=== PATIENT | female | born 1950 | race Caucasian/White ===

== ENCOUNTER 2025-03-03 19:59 | Emergency (ER) | payer OTHER ==
[~2025-03-03] VITALS: Ht 162.6 cm; Wt 91.0 kg
--- NOTE | 2025-03-03 20:13 | ED.PDOC ---
History of Present Illness HPI Comments 75-year-old female who is brought in by ambulance from home for left hip pain and abrasion wound to left forearm status post mechanical fall and injury. Per EMS report, patient has a history of AFib but is not on any blood thinners. She is reported to have tripped at home and fell onto her left side and was unable to assist herself up, due to pain. Vitals were noted to have been stable and within normal limits. Patient denies having any loss of consciousness, additional injuries, active bleeding, numbness, tingling, dizziness, lightheadedness, or further associated symptoms. Chief Complaint: Fall Injury Time Seen by MD: 20:00 Reviewed Notes: Nurses Notes, Bottom Sprayer Notes, Medications, Allergies Allergies: Coded Allergies: Codeine (Verified Allergy, Intermediate, SHORTNESS OF BREATH, 03/03/25) Information Source: Patient, Emergency Med Personnel Mode of Arrival: EMS Severity: Moderate Timing: Hours Duration: Since onset Prehospital treatment: 12 Lead EKG, Accucheck, Wastewater Engineer Past Medical History PAST MEDICAL HISTORY: AFIB Surgical History: Denies all surgeries AXMINSTER WEAVER History: Denies all AXMINSTER WEAVER Hx Family History Family History: Unknown Social History Smoker: Non-Smoker Alcohol: Denies ETOH Use Drugs: Denies Drug Use Lives In: Home All Other Systems: Reviewed and Negative (Comprehensive systems review obtained and negative except for what is stated in the HPI.) Physical Exam General Appearance: No Apparent Distress, Normal HEENT: Normal ENT Inspection, Pharynx Normal, TMs Normal Neck: Full Range of Motion, Non-Tender, Normal, Normal Inspection Respiratory: Chest Non-Tender, Lungs Clear, No Accessory Muscle Use, No Respiratory Distress, Normal Breath Sounds Cardiovascular: No Edema, No JVD, No Murmur, No Gallop, Normal Peripheral Pulses, Regular Rate/Rhythm Breast Exam: Deferred Gastrointestinal: No Organomegaly, Non Tender, No Pulsatile Mass, Normal Bowel Sounds, Soft Genitalia: Deferred Pelvic: Deferred Rectal: Deferred Extremities: No calf tenderness, Normal capillary refill, Normal inspection, Normal range of motion, Non-tender, No pedal edema Musculoskeletal : Location: Left Extremity Location: Hip Apperance: Normal, Tenderness Neurologic: Alert, manager of software development II-XII nml as Tested, No Motor Deficits, Normal Affect, Normal Mood, No Sensory Deficits Cerebellar Function: Normal Reflexes: Normal Skin: Dry, Normal Color, Warm, Wounds (Abrasion to left forearm) Lymphatic: No Adenopathy Was a procedure done? Was a procedure done?: No Differential Dx Considerations may include: Fracture, contusion, abrasions, bruising, sprain, dislocation, among others X-Ray, Labs, Meds, VS Vital Signs Date Time Temp Pulse Resp B/P (MAP) Pulse Ox O2 Delivery O2 Flow Rate FiO2 03/03/25 21:17 73 18 95 Room Air* 0 21 03/03/25 21:16 98.2 73 18 135/56 (82) 95 98.2 03/03/25 20:05 97.8 88 18 149/78 (101) 94 97.8 Current Medications Medications (Trade) Dose Ordered Sig/Nereida Route Start Time Stop Time Status Last Admin Acetaminophen (Tylenol Tablet) 1,000 mg ONCE ONCE PO 03/03/25 21:15 03/03/25 21:16 DC 03/03/25 21:21 [place] [id number] Ph: [phone] DIAGNOSTIC IMAGING Diagnostic Imaging Report : [id number] Signed PATIENT: CLIFF JHAVERI ACCT: [id number] UNIT: [id number] : 1950 LOC: ER ROOM / BED: / AGE / SEX: 75 / F ADM STATUS: REG ER SERVICE 25 ORDERING PHYSICIAN: ARIAS AYALA MD PROCEDURE(s): LHIP - L HIP COMPLETE XRAY REASON: fall ORDER NUMBER(s): [id number], ACCESSION NUMBER(s): [id number] CLINICAL INDICATION: fall TECHNIQUE: 3 radiographic views of the proximal left femur were obtained. Comparison: None FINDINGS/IMPRESSION: There is no evidence of acute fracture or dislocation. The visualized joint space is well maintained. The alignment is anatomical. There is no radiopaque foreign body. ATED BY: JUAN CASTILLO Jr., DO DICTATED DATE/TIME: 03/03/252115 SIGNED BY: JUAN CASTILLO Jr., SIGNED DATE/TIME: 03/03/252115 CC: [place] [id number] Ph: [phone] DIAGNOSTIC IMAGING Diagnostic Imaging Report : [id number] Signed PATIENT: CLIFF JHAVERI ACCT: [id number] UNIT: [id number] : 1950 LOC: ER ROOM / BED: / AGE / SEX: 75 / F ADM STATUS: REG ER SERVICE 25 ORDERING PHYSICIAN: ARIAS AYALA MD PROCEDURE(s): LFOR - L FOREARM XRAY REASON: fall ORDER NUMBER(s): [id number], ACCESSION NUMBER(s): [id number] CLINICAL INDICATION: fall TECHNIQUE: 2 radiographic views of the left forearm were obtained. Comparison: None FINDINGS/IMPRESSION: Small area of periosteal reaction distal 3rd of the left ulna suggesting fracture in that area. The visualized joint space is well maintained. The alignment is anatomical. There is no radiopaque foreign body. ATED BY: JUAN CASTILLO Jr., DO DICTATED DATE/TIME: 03/03/252117 SIGNED BY: JUAN CASTILLO Jr., SIGNED DATE/TIME: 03/03/252117 CC: Time of 1ST Reevaluation: 20:30 Reevaluation 1ST: Unchanged Patient Education/Counseling: Diagnosis, Treatment Family Education/Counseling: No Family Present Additional Information Previous visits reviewed: N/A The following tests were ordered, and results were reviewed by me: Left hip x- ray Additional Information was gathered from interviewing the following independent historians: EMS I reviewed and agreed with the following test results read by other providers: Left hip x-ray I discussed treatment and results with medical personnel and: patient SEPSIS Sepsis Screen Physician Orders L Hip Complete Xray (03/03/25 20:26) L Forearm Xray (03/03/25 20:26) Splints (03/03/25 ) Vital Signs Date Time Temp Pulse Resp B/P (MAP) Pulse Ox O2 Delivery O2 Flow Rate FiO2 03/03/25 21:17 73 18 95 Room Air* 0 21 03/03/25 21:16 98.2 73 18 135/56 (82) 95 98.2 03/03/25 20:05 97.8 88 18 149/78 (101) 94 97.8 Medications Medications Dose Ordered Sig/Nereida Route Start Time Stop Time Status Last Admin Dose Admin Acetaminophen 1,000 mg ONCE ONCE PO 03/03/25 21:15 03/03/25 21:16 DC 03/03/25 21:21 Departure 1 Departure Time of Disposition: 23:13 (Patient has an ulnar fracture. We will splint in discharge patient home with outpatient follow up) Impression: Primary Impression: Left ulnar fracture Qualified Codes: S52.692A - Other fracture of lower end of left ulna, initial encounter for closed fracture Disposition: HOME / SELF CARE / HOMELESS Condition: Stable Referrals: JORDAN SORENSEN MD Additional Instructions: You have a distal ulnar fracture. You were placed in a splint. You referred to orthopedics. Please call for an appointment. For pain you can take the followinam: Ibuprofen 400mg with food Noon: Acetaminophen 1000mg 4pm: Ibuprofen 400mg with food 8pm: Acetaminophen 1000mg You should follow up with your regular doctor within one week to ensure you are doing better. If your symptoms worsen or you have any other concerns then please return to the ER. Discharged With: Self Critical Care Note Critical Care Time?: No Stability Stability form required: No Heart Score Heart Score: Heart Score Response (Comments) Value History N/A 0 EKG N/A 0 Age N/A 0 Risk Factors N/A 0 Troponin N/A 0 Total 0 I personally scribed for ARIAS AYALA MD ([email or web address]) on 03/03/25 at 20:13. Electronically submitted by Mundo Flaherty ([email or web address]). I personally scribed for ARIAS AYALA MD ([email or web address]) on 03/03/25 at 21:35. Electronically submitted by Mundo Flaherty ([email or web address]). ARIAS AYALA MD Mar 03, 2025 20:13
[2025-03-03] MEDS ORDERED: HYDROcodone-ACET 10/325MG TAB PO ONE (20:30)
[2025-03-03 21:16] VITALS: BP 135/56; TEMP 98.2
[2025-03-03 21:17] VITALS: PULSE 73; RESP 18; O2SAT 95
--- NOTE | 2025-03-03 21:19 | DVH ---
CLINICAL INDICATION: fall TECHNIQUE: 3 radiographic views of the proximal left femur were obtained. Comparison: None FINDINGS/IMPRESSION: There is no evidence of acute fracture or dislocation. The visualized joint space is well maintained. The alignment is anatomical. There is no radiopaque foreign body.
[2025-03-03] MEDS: ACETAMINOPHEN 325 MG TAB PO ONE (21:21)
--- NOTE | 2025-03-03 21:21 | DVH ---
CLINICAL INDICATION: fall TECHNIQUE: 2 radiographic views of the left forearm were obtained. Comparison: None FINDINGS/IMPRESSION: Small area of periosteal reaction distal 3rd of the left ulna suggesting fracture in that area. The visualized joint space is well maintained. The alignment is anatomical. There is no radiopaque foreign body.
== END 2025-03-04 00:55 | disposition home or self-care (01) ==
LOC: EDBD 19:59 → ER 19:59
DX: S52.692A Other fracture of lower end of left ulna, initial encounter for closed fracture (principal); I48.91 Unspecified atrial fibrillation; Z88.5 Allergy status to narcotic agent; W01.0XXA Fall on same level from slipping, tripping and stumbling without subsequent striking against object, initial encounter; Y93.89 Activity, other specified; Y92.098 Other place in other non-institutional residence as the place of occurrence of the external cause; Y99.8 Other external cause status
CPT/HCPCS: 29125; 73090; 73502